=== PATIENT | female | born 1985 | race Caucasian/White ===

== ENCOUNTER 2016-08-04 01:17 | Emergency (ER) | payer SELFPAY ==
[~2016-08-04] VITALS: Ht 172.7 cm; Wt 56.7 kg
[2016-08-04] MEDS ORDERED: TRAZ-144 PO (01:51)
[2016-08-04] MEDS ORDERED: CITA40TA22 PO (01:52)
[2016-08-04] MEDS ORDERED: birth control PO (01:53)
[2016-08-04] MEDS ORDERED: POTA-10 PO (01:56)
[2016-08-04] MEDS ORDERED: IV NORMAL SALINE 1000 ML BAG IV ONE ×2 (02:15)
[2016-08-04] MEDS ORDERED: PANTOPRAZOLE SODIUM 40 MG VIAL IV ONE (02:15)
[2016-08-04] MEDS ORDERED: ONDANSETRON 4 MG/2 ML VIAL IV ONE ×2 (02:15→05:00)
[2016-08-04] MEDS ORDERED: MORPHINE SULFATE 2 MG/1 ML DISP.SYRIN IV ONE (02:15)
[2016-08-04 02:25] LABS: BASOPHILS % (AUTO) 0.3 % (0.0-2.0); EOSINOPHILS # (AUTO) 0.1 K/uL (0.0-0.7); EOSINOPHILS % (AUTO) 0.8 % (0.0-7.0); HEMATOCRIT 35.2 % (31.2-41.9); HEMOGLOBIN 12.4 g/dL (10.9-14.3); LYMPHOCYTES # (AUTO) 3.1 K/uL (20.0-40.0); LYMPHOCYTES % (AUTO) 30.8 % (20.5-51.5); MEAN CORPUSCULAR HEMOGLOBIN 31.9 uug (24.7-32.8); MEAN CORPUSCULAR HGB CONC 35 g/dL (32.3-35.6); MEAN CORPUSCULAR VOLUME 90.4 fL (75.5-95.3); MONOCYTES # (AUTO) 0.7 K/uL (2.0-10.0); MONOCYTES % (AUTO) 7.3 % (0.0-11.0); NEUTROPHILS # (AUTO) 6.1 K/uL (1.8-8.9); NEUTROPHILS % (AUTO) 60.8 % (38.5-71.5); PLATELET COUNT (AUTO) 286 K/uL (179-408); RED BLOOD CELL COUNT(AUTO) 3.89 MIL/uL (3.63-4.92)
[2016-08-04 02:41] LABS: ALBUMIN 3.7 g/dL (3.4-5.0); BILIRUBIN,DIRECT 0.1 mg/dL (0.0-0.2); BILIRUBIN,TOTAL 0.3 mg/dL (0.2-1.0); CALCIUM 8.7 mg/dL (8.5-10.1); CREATININE 0.8 mg/dL (0.6-1.3); POTASSIUM 3.5 mmol/L (3.5-5.1); TOTAL PROTEIN, SERUM 7.2 g/dL (6.4-8.2)
[2016-08-04] MEDS ORDERED: PANTOPRAZOLE SODIUM 40 MG VIAL ONE (02:41)
[2016-08-04] MEDS ORDERED: MORPHINE SULFATE 2 MG/1 ML DISP.SYRIN ONE (02:41)
[2016-08-04] MEDS ORDERED: ONDANSETRON 4 MG/2 ML VIAL ONE ×2 (02:41→05:06)
[2016-08-04] MEDS ORDERED: HYDROMORPHONE 1 MG/1 ML DISP.SYRIN IV ONE ×2 (03:30→04:45)
[2016-08-04] MEDS ORDERED: HYDROMORPHONE 1 MG/1 ML DISP.SYRIN ONE ×2 (03:33→05:04)
[2016-08-04] MEDS ORDERED: ALBUTEROL SULFATE 2.5 MG/3 ML NEBU NEB ONE (04:45)
[2016-08-04] MEDS ORDERED: ALBUTEROL SULFATE 2.5 MG/3 ML NEBU ONE (04:46)
--- NOTE | 2016-08-04 05:59 | NUR ---
Patient discharged to home in stable conditon. Written and verbal after care instructions given. Patient verbalizes understanding of instructions.
== END 2016-08-04 06:00 | disposition home or self-care (01) ==
LOC: ER 01:20
DX: R55 Syncope and collapse (principal); J40 Bronchitis, not specified as acute or chronic; R11.10 Vomiting, unspecified; F41.9 Anxiety disorder, unspecified; Z88.6 Allergy status to analgesic agent
CPT/HCPCS: 36415; 70030-TC; 71010; 73502; 84703; 85025; 93005; A4663; C9113; J1170; J2270; J2405; J7030

== ENCOUNTER 2016-08-27 23:11 | Emergency (ER) | payer OTHER ==
[~2016-08-27] VITALS: Ht 172.7 cm; Wt 55.3 kg
[~2016-08-27 23:11] MED LIST: CITA40TA22 PO; POTA-10 PO; TRAZ-144 PO; birth control PO
--- NOTE | 2016-08-27 23:15 | NUR ---
PATIENT C/O N/V X4 DAYS WITH DIARRHEA X1 DAY. ALSO C/O PELVIC PAIN X1 WEEK. 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 C/O BACK PAIN FOM SYNCOPE... PT IS ALERT, ORIENTED X 4, NO RESP DISTRESS NOTED OR REPORTED UPON ASSESSMENT...
[2016-08-27] MEDS ORDERED: IV NORMAL SALINE 1000 ML BAG IV ONE (23:30)
[2016-08-27 23:54] LABS: BASOPHILS % (AUTO) 0.5 % (0.0-2.0); EOSINOPHILS # (AUTO) 0.1 K/uL (0.0-0.7); EOSINOPHILS % (AUTO) 0.7 % (0.0-7.0); HEMATOCRIT 38.9 % (37-47); HEMOGLOBIN 13.1 G/DL (12.0-16.0); LYMPHOCYTES # (AUTO) 3.3 K/UL (0.8-4.8); LYMPHOCYTES % (AUTO) 34.4 % (20.5-51.5); MEAN CORPUSCULAR HEMOGLOBIN 30.3 UUG (27.0-31.0); MEAN CORPUSCULAR HGB CONC 34 g/dL (32.0-37.0); MEAN CORPUSCULAR VOLUME 90.1 FL (81.0-99.0); MONOCYTES # (AUTO) 0.6 K/UL (0.1-1.30); MONOCYTES % (AUTO) 6.2 % (0.0-11.0); NEUTROPHILS # (AUTO) 5.7 K/UL (1.8-8.9); NEUTROPHILS % (AUTO) 58.2 % (38.5-71.5); PLATELET COUNT (AUTO) 261 K/UL (150-450); RED BLOOD CELL COUNT(AUTO) 4.32 MIL/UL (4.2-5.4); RED CELL DISTRIBUTION WIDTH 11.6 % (11.5-14.5); WHITE BLOOD COUNT (AUTO) 9.7 K/UL (4.0-11.2)
[2016-08-28 00:10] LABS: BILIRUBIN,DIRECT 0.1 mg/dL (0.0-0.2); BILIRUBIN,TOTAL 0.3 mg/dL (0.2-1.0); CALCIUM 9.1 mg/dL (8.5-10.1); CREATININE 0.9 mg/dL (0.6-1.3); POTASSIUM 3.6 mmol/L (3.5-5.1); TOTAL PROTEIN, SERUM 7.5 g/dL (6.4-8.2)
[2016-08-28] MEDS ORDERED: PROCHLORPERAZINE EDISYLATE 10 MG/2 ML VIAL IV ONE (00:30)
[2016-08-28] MEDS ORDERED: HYDROMORPHONE 1 MG/1 ML DISP.SYRIN IV ONE (00:30)
[2016-08-28] MEDS ORDERED: HYDROMORPHONE 1 MG/1 ML DISP.SYRIN ONE (00:49)
[2016-08-28] MEDS ORDERED: PROCHLORPERAZINE EDISYLATE 10 MG/2 ML VIAL ONE (00:49)
[2016-08-28] MEDS ORDERED: LORAZEPAM 2 MG/1 ML VIAL IV ONE (02:30)
[2016-08-28] MEDS ORDERED: LORAZEPAM 2 MG/1 ML VIAL ONE (02:35)
[2016-08-28] MEDS ORDERED: ONDANSETRON IV *ER 4 MG/2 ML VIAL IV ONE (03:00)
[2016-08-28] MEDS ORDERED: ONDANSETRON 4 MG/2 ML VIAL ONE (03:16)
--- NOTE | 2016-08-28 03:28 | NUR ---
Patient discharged to home in stable conditon. Written and verbal after care instructions given. Patient verbalizes understanding of instructions. Pt walked out of ER unassisted with belongings at side, pt taking an Uber home...
[2016-08-28 03:30] VITALS: BP 116/81
[2016-08-30 23:08] LABS: *CHLAMYDIA NAA Negative (Negative); *GC NAA Negative (Negative); *TRIC.VAG. NAA Negative (Negative)
== END 2016-08-28 03:35 | disposition home or self-care (01) ==
LOC: ER 23:12
DX: R55 Syncope and collapse (principal); R11.2 Nausea with vomiting, unspecified; R10.2 Pelvic and perineal pain; F41.9 Anxiety disorder, unspecified; F10.20 Alcohol dependence, uncomplicated; Z88.6 Allergy status to analgesic agent
CPT/HCPCS: 36415; 70030-TC; 84703; 85025; 87491; 93005; A4663; J0780; J1170; J2060; J2405; J7030

== ENCOUNTER 2016-10-06 00:30 | Emergency (ER) | payer OTHER ==
[~2016-10-06] VITALS: Ht 172.7 cm; Wt 56.7 kg
[2016-10-06] MEDS ORDERED: HYDROMORPHONE 1 MG/1 ML DISP.SYRIN IV ONE ×2 (01:30→02:45)
[2016-10-06] MEDS ORDERED: ONDANSETRON 4 MG/2 ML VIAL IV ONE ×2 (01:30→02:45)
[2016-10-06] MEDS ORDERED: IV NORMAL SALINE 1000 ML BAG IV ONE (01:30)
[2016-10-06 01:39] LABS: *BILIRUBIN,URIN NEGATIVE (NEGATIVE); *BLOOD, URINE NEGATIVE (NEGATIVE); *CLARITY,URINE CLEAR (CLEAR); *COLOR,URINE LIGHT YELLOW (YELLOW); *KETONES,URINE NEGATIVE (NEGATIVE); *PROTEIN,URINE NEGATIVE (NEGATIVE); *UROBILINOGEN,URINE 0.2 E.U./dl (NORMAL); LEUKOCYTE ESTERASE ,URINE NEGATIVE (NEGATIVE); NITRITE, URINE NEGATIVE (NEGATIVE); UGLUCOSE NEGATIVE (NEGATIVE)
[2016-10-06] MEDS ORDERED: ONDANSETRON 4 MG/2 ML VIAL ONE ×2 (01:39→02:48)
[2016-10-06] MEDS ORDERED: HYDROMORPHONE 2 MG/1 ML DISP.SYRIN ONE (01:39)
[2016-10-06 01:44] LABS: *URINE HCG, QUAL NEGATIVE (NEGATIVE); BACTERIA,URINE FEW /HPF (NONE SEEN); RBC,URINE NONE SEEN /HPF (0-3); SQUAMOUS EPITHELIAL CELL,UR FEW /HPF (NONE SEEN); WBC,URINE 0-3 /HPF (0-3)
[2016-10-06 01:44] LABS: BASOPHILS # (AUTO) 0.1 K/uL (0.0-8.0); BASOPHILS % (AUTO) 0.6 % (0.0-2.0); EOSINOPHILS # (AUTO) 0.1 K/uL (0.0-0.7); EOSINOPHILS % (AUTO) 0.9 % (0.0-7.0); HEMATOCRIT 37.1 % (37-47); HEMOGLOBIN 12.6 G/DL (12.0-16.0); LYMPHOCYTES # (AUTO) 2.7 K/UL (0.8-4.8); LYMPHOCYTES % (AUTO) 31.5 % (20.5-51.5); MEAN CORPUSCULAR HEMOGLOBIN 30.9 UUG (27.0-31.0); MEAN CORPUSCULAR HGB CONC 34 g/dL (32.0-37.0); MONOCYTES # (AUTO) 0.7 K/UL (0.1-1.30); NEUTROPHILS # (AUTO) 4.9 K/UL (1.8-8.9); PLATELET COUNT (AUTO) 307 K/UL (150-450); RED BLOOD CELL COUNT(AUTO) 4.07 MIL/UL (4.2-5.4); WHITE BLOOD COUNT (AUTO) 8.5 K/UL (4.0-11.2)
[2016-10-06 01:51] LABS: CREATININE 0.7 mg/dL (0.6-1.3); POTASSIUM 3.7 mmol/L (3.5-5.1)
[2016-10-06 01:56] LABS: BILIRUBIN,DIRECT 0.1 mg/dL (0.0-0.2); BILIRUBIN,TOTAL 0.2 mg/dL (0.2-1.0); TOTAL PROTEIN, SERUM 7.5 g/dL (6.4-8.2)
--- NOTE | 2016-10-06 02:32 | NUR ---
Pt sts pain is coming back, requesting medication. Pt also c/o itching and requesting medication for itching and requesting more zofran. notified. Awaiting further orders.
[2016-10-06] MEDS ORDERED: diphenhydrAMINE 50 MG/1 ML VIAL IV ONE (02:45)
[2016-10-06] MEDS ORDERED: HYDROMORPHONE 1 MG/1 ML DISP.SYRIN ONE (02:48)
[2016-10-06] MEDS ORDERED: diphenhydrAMINE 50 MG/1 ML VIAL ONE (02:48)
--- NOTE | 2016-10-06 02:52 | NUR ---
Pt medicated for pain, nausea and itching. Will monitor for effects of medication. Fluid bolus cont infusing freely to gravity. Pt repositioned for comfort.
--- NOTE | 2016-10-06 03:50 | NUR ---
Pain improved. Fluid bolus completed. Pt stable for discharge per MD. IV dc'd, catheter intact. Drg applied. No problems noted to site. Pt and family given ACI. Both verbalized understanding of dc instructions. Pt wheeled out of er via w/c with ride home.
[2016-10-06 03:52] VITALS: BP 120/64
== END 2016-10-06 03:53 | disposition home or self-care (01) ==
LOC: ER 00:34
DX: R10.2 Pelvic and perineal pain (principal); F41.9 Anxiety disorder, unspecified; D25.9 Leiomyoma of uterus, unspecified; F10.20 Alcohol dependence, uncomplicated; Z88.6 Allergy status to analgesic agent
CPT/HCPCS: 36415; 80048; 80076; 81001; 83690; 84703; 85025; 96361; 96374; 96375; 96376; 99285; A4663; J1170 ×2; J1200; J2405 ×2; J7030 ×2

== ENCOUNTER 2016-10-14 00:34 | Emergency (ER) | payer OTHER ==
[~2016-10-14] VITALS: Ht 172.7 cm; Wt 56.2 kg
--- NOTE | 2016-10-14 01:05 | NUR ---
DANIELLE AVILES AT BEDSIDE FOR MSE
[2016-10-14] MEDS ORDERED: HYDROMORPHONE 1 MG/1 ML DISP.SYRIN IV ONE ×2 (01:15→02:45)
[2016-10-14] MEDS ORDERED: DIAZEPAM 2 MG TABLET PO ONE (01:15)
[2016-10-14] MEDS ORDERED: PROMETHAZINE HCL 25 MG/1 ML VIAL IM ONE (01:15)
[2016-10-14] MEDS ORDERED: IV NORMAL SALINE 1000 ML BAG IV ONE (01:15)
[2016-10-14] MEDS ORDERED: HYDROMORPHONE 1 MG/1 ML DISP.SYRIN ONE ×2 (01:42→02:52)
[2016-10-14] MEDS ORDERED: PROMETHAZINE HCL 25 MG/1 ML VIAL ONE (01:43)
[2016-10-14] MEDS ORDERED: DIAZEPAM 5 MG TABLET ONE (01:43)
[2016-10-14 01:52] LABS: CREATININE 0.6 mg/dL (0.6-1.3)
[2016-10-14 01:54] LABS: POTASSIUM 5.3 mmol/L (3.5-5.1)
[2016-10-14] MEDS ORDERED: ONDANSETRON IV *ER 4 MG/2 ML VIAL IV ONE (02:45)
--- NOTE | 2016-10-14 02:48 | NUR ---
Patient discharged to home in stable conditon. Written and verbal after care instructions given. Patient verbalizes understanding of instructions.
[2016-10-14] MEDS ORDERED: ONDANSETRON 4 MG/2 ML VIAL ONE (02:52)
== END 2016-10-14 02:50 | disposition home or self-care (01) ==
LOC: ER 00:38
DX: S16.1XXA Strain of muscle, fascia and tendon at neck level, initial encounter (principal); S86.912A Strain of unspecified muscle(s) and tendon(s) at lower leg level, left leg, initial encounter; F41.9 Anxiety disorder, unspecified; F10.20 Alcohol dependence, uncomplicated; Z88.7 Allergy status to serum and vaccine; W19.XXXA Unspecified fall, initial encounter; Y93.89 Activity, other specified; Y92.89 Other specified places as the place of occurrence of the external cause; Y99.8 Other external cause status
CPT/HCPCS: 36415; 84703; J1170; J2405; J2550; J7030

== ENCOUNTER 2016-11-04 21:34 | Emergency (ER) | payer OTHER ==
[~2016-11-04] VITALS: Ht 172.7 cm; Wt 57.2 kg
[2016-11-04] MEDS ORDERED: HYDROMORPHONE HCL 2 MG TABLET PO ONE (22:30)
[2016-11-04] MEDS ORDERED: ONDANSETRON 4 MG/2 ML VIAL IV ONE (22:30)
[2016-11-04] MEDS ORDERED: IV NORMAL SALINE 1000 ML BAG IV ONE (22:30)
[2016-11-04 22:39] LABS: *URINE HCG, QUAL NEGATIVE (NEGATIVE)
[2016-11-04] MEDS ORDERED: LORAZEPAM 2 MG/1 ML VIAL IV ONE (22:45)
[2016-11-04 22:46] LABS: BASOPHILS % (AUTO) 0.6 % (0.0-2.0); EOSINOPHILS % (AUTO) 0.8 % (0.0-7.0); HEMATOCRIT 37.3 % (37-47); HEMOGLOBIN 13.1 G/DL (12.0-16.0); LYMPHOCYTES # (AUTO) 0.7 K/UL (0.8-4.8); LYMPHOCYTES % (AUTO) 11.8 % (20.5-51.5); MEAN CORPUSCULAR HEMOGLOBIN 31.7 UUG (27.0-31.0); MEAN CORPUSCULAR HGB CONC 35 g/dL (32.0-37.0); MEAN CORPUSCULAR VOLUME 90.1 FL (81.0-99.0); MONOCYTES # (AUTO) 0.7 K/UL (0.1-1.30); MONOCYTES % (AUTO) 12.8 % (0.0-11.0); NEUTROPHILS # (AUTO) 4.4 K/UL (1.8-8.9); PLATELET COUNT (AUTO) 255 K/UL (150-450); RED BLOOD CELL COUNT(AUTO) 4.14 MIL/UL (4.2-5.4); WHITE BLOOD COUNT (AUTO) 5.8 K/UL (4.0-11.2)
[2016-11-04] MEDS ORDERED: ONDANSETRON 4 MG/2 ML VIAL ONE (22:53)
[2016-11-04 23:00] LABS: BILIRUBIN,DIRECT 0.1 mg/dL (0.0-0.2); BILIRUBIN,TOTAL 0.3 mg/dL (0.2-1.0); CREATININE 0.9 mg/dL (0.6-1.3); POTASSIUM 3.6 mmol/L (3.5-5.1); TOTAL PROTEIN, SERUM 7.4 g/dL (6.4-8.2)
[2016-11-04] MEDS ORDERED: HYDROMORPHONE HCL 2 MG TABLET ONE (23:00)
[2016-11-04] MEDS ORDERED: LORAZEPAM 2 MG/1 ML VIAL ONE (23:01)
--- NOTE | 2016-11-04 23:29 | NUR ---
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
[2016-11-05] MEDS ORDERED: HYDROMORPHONE HCL 2 MG TABLET PO ONE (00:15)
[2016-11-05] MEDS ORDERED: ONDANSETRON IV *ER 4 MG/2 ML VIAL IV ONE (00:30)
[2016-11-05] MEDS ORDERED: ONDANSETRON 4 MG/2 ML VIAL ONE (00:37)
[2016-11-05] MEDS ORDERED: HYDROMORPHONE HCL 2 MG TABLET ONE (00:37)
--- NOTE | 2016-11-05 00:42 | NUR ---
CALLED [facility] BACK, SPOKE TO DAVID, STATES DR. ALCARAZ WILL CALL US BACK.
--- NOTE | 2016-11-05 01:10 | NUR ---
WHILE TAKING CARE OF ANOTHER PATIENT, HEARD THIS PATIENT ARGUING WITH DR. OCONNOR. PATIENT WALKED TO THE BATHROOM AND HEARD CRYING. I SPOKE TO PATIENT AFTER SHE RETURNED TO HER ROOM AND STATES THAT SHE OVERHEARD DR. OCONNOR SPEAK WITH SOMEONE ON THE PHONE AND IT SOUNDED LIKE THAT DR. OCONNOR MADE IS SOUND LIKE THAT PATIENT HAS MED SEEKING BEHAVIOR. REASSURED PATIENT.
--- NOTE | 2016-11-05 01:26 | NUR ---
[facility] CALLED, SPOKE WITH DAVID STATED THAT WE WILL RECEIVE CALL WITH ROOM INFORMATION.
--- NOTE | 2016-11-05 01:35 | NUR ---
RECEIVED CALL FROM [facility], BLS TRANSPORT WILL BE HERE 219, TRANSFER TO [facility]
[2016-11-05] MEDS ORDERED: METOCLOPRAMIDE HCL 10 MG/2 ML VIAL IV ONE (01:45)
[2016-11-05] MEDS ORDERED: METOCLOPRAMIDE HCL 10 MG/2 ML VIAL ONE (01:55)
--- NOTE | 2016-11-05 01:55 | NUR ---
PATIENT LEFT AMA. NOTIFIED.
--- NOTE | 2016-11-05 01:56 | NUR ---
PATIENT WALKED OUT WITH IV STILL IN PLACE, SEARCHED THE TRASH IN HER ROOM, UNABLE TO LOCATE IT. WALKED OUTSIDE AND SEARCHED THE PARKING LOT, UNABLE TO FIND PATIENT. WILL CALL POLICE DEPARTMENT.
--- NOTE | 2016-11-05 02:09 | NUR ---
NURSING CAR PARKER AND SECURITY NOTIFIED THAT PATIENT, LEFT AMA. POLICE DEPARTMENT CALLED, SPOKE TO [employer] AND DESCRIPTION OF PATIENT GIVEN.
--- NOTE | 2016-11-05 02:17 | NUR ---
CALLED PATIENT ON [employer] PHONE NUMBER PROVIDED, MESSAGE LEFT.
--- NOTE | 2016-11-05 02:20 | NUR ---
OFFICER CHAVA HERE FROM [employer], ADDRESS AND DESCRIPTION OF PATIENT PROVIDED.
--- NOTE | 2016-11-05 02:52 | NUR ---
RECEIVED A CALL FROM OFFICER DOELL FROM [facility], ADDRESS THAT PATIENT PROVIDED ON FACE SHEET IS NOT A GOOD ADDRESS ANYMORE, PROVIDED OFFICER CHAVA WITH PATIENT'S PHONE NUMBER LISTED ON FACE SHEET.
== END 2016-11-05 02:00 | disposition left against medical advice (07) ==
LOC: ER 21:38
DX: G89.29 Other chronic pain (principal); R10.2 Pelvic and perineal pain; F41.9 Anxiety disorder, unspecified; R11.2 Nausea with vomiting, unspecified; Z88.6 Allergy status to analgesic agent
CPT/HCPCS: 36415; 80048; 80076; 84703; 85025; 85730; 93005; 96361; 96374; 96375; 96376; 99285; A4663; J2060; J2405 ×2; J2765; J7030

== ENCOUNTER 2017-01-13 03:07 | Emergency (ER) | payer OTHER ==
[~2017-01-13] VITALS: Ht 172.7 cm; Wt 56.7 kg
[2017-01-13 03:43] LABS: *BILIRUBIN,URIN NEGATIVE (NEGATIVE); *BLOOD, URINE NEGATIVE (NEGATIVE); *CLARITY,URINE CLEAR (CLEAR); *COLOR,URINE YELLOW (YELLOW); *KETONES,URINE NEGATIVE (NEGATIVE); *PROTEIN,URINE 1+ (NEGATIVE); *UROBILINOGEN,URINE 0.2 E.U./dl (NORMAL); LEUKOCYTE ESTERASE ,URINE TRACE (NEGATIVE); NITRITE, URINE NEGATIVE (NEGATIVE); PH,URINE 8.5 (5.0-8.0); UGLUCOSE NEGATIVE (NEGATIVE)
[2017-01-13 03:45] LABS: *URINE HCG, QUAL NEGATIVE (NEGATIVE)
--- NOTE | 2017-01-13 03:45 | NUR ---
Pt is received alert, responsive as she came in c/o Right Flank pain with Dysuria x2days and she is s/p [facility] visited on 01/06/17 and received Metronidazole 500mg po, Doxycycline 100mg BID but noneffective. Her care continue with MD at bedside.
[2017-01-13 03:48] LABS: BACTERIA,URINE MODERATE /HPF (NONE SEEN); RBC,URINE 0-3 /HPF (0-3); SQUAMOUS EPITHELIAL CELL,UR FEW /HPF (NONE SEEN)
[2017-01-13 04:09] LABS: BASOPHILS # (AUTO) 0.1 K/uL (0.0-8.0); BASOPHILS % (AUTO) 0.7 % (0.0-2.0); EOSINOPHILS # (AUTO) 0.1 K/uL (0.0-0.7); EOSINOPHILS % (AUTO) 0.8 % (0.0-7.0); HEMATOCRIT 36.2 % (37-47); HEMOGLOBIN 12.1 G/DL (12.0-16.0); LYMPHOCYTES # (AUTO) 2.5 K/UL (0.8-4.8); LYMPHOCYTES % (AUTO) 24.5 % (20.5-51.5); MEAN CORPUSCULAR HEMOGLOBIN 30.1 UUG (27.0-31.0); MEAN CORPUSCULAR HGB CONC 33 g/dL (32.0-37.0); MEAN CORPUSCULAR VOLUME 90.4 FL (81.0-99.0); MONOCYTES # (AUTO) 0.6 K/UL (0.1-1.30); PLATELET COUNT (AUTO) 293 K/UL (150-450); RED BLOOD CELL COUNT(AUTO) 4.01 MIL/UL (4.2-5.4); WHITE BLOOD COUNT (AUTO) 10.3 K/UL (4.0-11.2)
[2017-01-13 04:16] LABS: CREATININE 0.7 mg/dL (0.6-1.3); POTASSIUM 3.6 mmol/L (3.5-5.1)
--- NOTE | 2017-01-13 04:19 | NUR ---
Pt is noted resting in bed as she received Zofran 4mg IVP, Dilaudid 2mg IVP and started on 0.9ns IVF with labs work and urine collected and sent to lab. Her care continue as she is been monitor closely as awaits test results.
[2017-01-13 04:22] LABS: BILIRUBIN,DIRECT 0.1 mg/dL (0.0-0.2); BILIRUBIN,TOTAL 0.4 mg/dL (0.2-1.0); TOTAL PROTEIN, SERUM 6.7 g/dL (6.4-8.2)
--- NOTE | 2017-01-13 04:54 | NUR ---
IV removed. Catheter intact and site benign. Pressure and 4x4 gauze applied to site. No bleeding noted.
[2017-01-13 04:55] VITALS: BP 112/85
--- NOTE | 2017-01-13 04:55 | NUR ---
Patient discharged to home in stable conditon with uber taking atient home. Written and verbal after care instructions given. Patient verbalizes understanding of instructions. walke dout of ER with steady gait no distress noted
== END 2017-01-13 04:56 | disposition home or self-care (01) ==
LOC: ER 03:11
DX: N12 Tubulo-interstitial nephritis, not specified as acute or chronic (principal); R11.2 Nausea with vomiting, unspecified
CPT/HCPCS: 36415; 83690; 84703; 85025; 87086; A4663; J1170; J2405; J7030

== ENCOUNTER 2017-02-05 00:40 | Emergency (ER) | payer OTHER ==
[~2017-02-05] VITALS: Ht 172.7 cm; Wt 56.7 kg
--- NOTE | 2017-02-05 01:10 | NUR ---
Pt is received alert, responsive as she came in c/o Freguent Urination with bilateral flank pain with right flank greater than left side. She also c/o fever, chills , Vaginal burning and itching . Her care continue with urine sent to LAB as ordered while she will be medicated as ordered.
[2017-02-05] MEDS ORDERED: HYDROCODONE/APAP 5-325MG TABLET PO ONE (01:45)
[2017-02-05 01:57] LABS: *BILIRUBIN,URIN NEGATIVE (NEGATIVE); *BLOOD, URINE Trace-intact (NEGATIVE); *CLARITY,URINE CLEAR (CLEAR); *COLOR,URINE STRAW (YELLOW); *KETONES,URINE NEGATIVE (NEGATIVE); *PROTEIN,URINE NEGATIVE (NEGATIVE); *UROBILINOGEN,URINE 0.2 E.U./dl (NORMAL); LEUKOCYTE ESTERASE ,URINE NEGATIVE (NEGATIVE); NITRITE, URINE NEGATIVE (NEGATIVE); UGLUCOSE NEGATIVE (NEGATIVE)
[2017-02-05] MEDS ORDERED: HYDROCODONE/APAP 5-325MG TABLET ONE (02:08)
--- NOTE | 2017-02-05 02:13 | NUR ---
Pt remain alert, responsive a s she is been medicated as ordered with [place] 5mg /325mg po for pain . Her care continue as awaits lab result.
[2017-02-05 02:23] LABS: *URINE HCG, QUAL NEGATIVE (NEGATIVE); BACTERIA,URINE NONE SEEN /HPF (NONE SEEN); RBC,URINE 0-3 /HPF (0-3); SQUAMOUS EPITHELIAL CELL,UR FEW /HPF (NONE SEEN); WBC,URINE 0-3 /HPF (0-3)
[2017-02-05] MEDS ORDERED: PHENAZOPYRIDINE HCL 100 MG TABLET PO ONE (02:45)
[2017-02-05] MEDS ORDERED: HYDROMORPHONE 1 MG/1 ML DISP.SYRIN IM ONE (02:45)
[2017-02-05] MEDS ORDERED: ONDANSETRON 4 MG/2 ML VIAL IM ONE (02:45)
--- NOTE | 2017-02-05 03:01 | NUR ---
Pt is noted alertn responsive as she is been medicated as ordered with Dilaudid 1mg IM, Zofran 4mg IM for now. Her care continue as she is been monitor.
[2017-02-05] MEDS ORDERED: ONDANSETRON 4 MG/2 ML VIAL ONE (03:05)
[2017-02-05] MEDS ORDERED: HYDROMORPHONE 1 MG/1 ML DISP.SYRIN ONE (03:06)
[2017-02-05] MEDS ORDERED: PHENAZOPYRIDINE HCL 100 MG TABLET ONE (03:29)
--- NOTE | 2017-02-05 04:03 | NUR ---
Pt sts pain improved with medication. Pt stable for discharge per Dr. Ferro. Pt given ACI. Pt verbalized understanding of dc instructions. Pt ambulated out of ER with steady gait to wait for ride home.
[2017-02-05 04:07] VITALS: BP 128/72
== END 2017-02-05 04:00 | disposition home or self-care (01) ==
LOC: ER 00:42
DX: R30.0 Dysuria (principal); Z88.6 Allergy status to analgesic agent
CPT/HCPCS: 81001; 84703; 96372 ×2; 99284; A4663; J1170; J2405

== ENCOUNTER 2017-03-18 01:41 | Emergency (ER) | payer OTHER ==
[~2017-03-18] VITALS: Ht 172.7 cm; Wt 56.7 kg
[2017-03-18] MEDS ORDERED: IMIP25TA PO (01:49)
--- NOTE | 2017-03-18 02:04 | NUR ---
Pt ambulated to room with steady gait. Pt sts she has been vomiting for the last few days which has caused her jaw to hurt. Sts the pain is on both sides of her jaw radiating up her head to the top of her head. In addition pt c/o lower abd to peliv floor pain. Pt resting in position of comfort for self. Awaiting further eval.
[2017-03-18] MEDS ORDERED: IV NORMAL SALINE 1000 ML BAG IV ONE (02:30)
[2017-03-18] MEDS ORDERED: METOCLOPRAMIDE HCL 10 MG/2 ML VIAL IV ONE (02:30)
--- NOTE | 2017-03-18 02:50 | NUR ---
Pt seen by Dr. Ritchie. IV established, labs drawn and sent. Pt medicated for discomfort, will monitor for effects of medication. Fluid bolus infusing freely to gravity. Pt resting in position of comfort for self.
[2017-03-18 02:51] LABS: *BILIRUBIN,URIN NEGATIVE (NEGATIVE); *BLOOD, URINE NEGATIVE (NEGATIVE); *CLARITY,URINE CLEAR (CLEAR); *COLOR,URINE YELLOW (YELLOW); *KETONES,URINE NEGATIVE (NEGATIVE); *PROTEIN,URINE NEGATIVE (NEGATIVE); *UROBILINOGEN,URINE 0.2 E.U./dl (NORMAL); LEUKOCYTE ESTERASE ,URINE NEGATIVE (NEGATIVE); NITRITE, URINE NEGATIVE (NEGATIVE); PH,URINE 8.5 (5.0-8.0); UGLUCOSE NEGATIVE (NEGATIVE)
[2017-03-18 02:59] LABS: CREATININE 0.9 mg/dL (0.6-1.3); POTASSIUM 3.6 mmol/L (3.5-5.1)
[2017-03-18] MEDS ORDERED: METOCLOPRAMIDE HCL 10 MG/2 ML VIAL ONE (03:02)
[2017-03-18 03:05] LABS: BILIRUBIN,DIRECT 0.1 mg/dL (0.0-0.2); BILIRUBIN,TOTAL 0.5 mg/dL (0.2-1.0); TOTAL PROTEIN, SERUM 8.3 g/dL (6.4-8.2)
--- NOTE | 2017-03-18 03:37 | NUR ---
Pt sts she is feeling better. Pt stable for discharge per Dr. Ritchie. IV dc'd, catheter intact. Drsg applied. No problems noted to site. Pt given ACI. Pt verbalized understanding of dc instructions. Pt ambulated out of ER with steady gait to to wait for ride home.
[2017-03-18 03:39] VITALS: BP 128/88
[2017-03-18 03:45] LABS: BASOPHILS % (AUTO) 0.3 % (0.0-2.0); EOSINOPHILS # (AUTO) 0.1 K/uL (0.0-0.7); EOSINOPHILS % (AUTO) 0.5 % (0.0-7.0); HEMATOCRIT 44.7 % (37-47); HEMOGLOBIN 14.9 G/DL (12.0-16.0); LYMPHOCYTES # (AUTO) 2.6 K/UL (0.8-4.8); LYMPHOCYTES % (AUTO) 21.6 % (20.5-51.5); MEAN CORPUSCULAR HEMOGLOBIN 30.4 UUG (27.0-31.0); MEAN CORPUSCULAR HGB CONC 33 g/dL (32.0-37.0); MONOCYTES # (AUTO) 0.9 K/UL (0.1-1.30); MONOCYTES % (AUTO) 7.3 % (0.0-11.0); NEUTROPHILS # (AUTO) 8.2 K/UL (1.8-8.9); NEUTROPHILS % (AUTO) 70.3 % (38.5-71.5); PLATELET COUNT (AUTO) 418 K/UL (150-450); RED BLOOD CELL COUNT(AUTO) 4.91 MIL/UL (4.2-5.4); WHITE BLOOD COUNT (AUTO) 11.9 K/UL (4.0-11.2)
[2017-03-18 03:54] LABS: BACTERIA,URINE NONE SEEN /HPF (NONE SEEN); RBC,URINE NONE SEEN /HPF (0-3); SQUAMOUS EPITHELIAL CELL,UR FEW /HPF (NONE SEEN); URINE AMORPHOUS PHOSPHATES MODERATE /HPF; WBC,URINE 0-3 /HPF (0-3)
== END 2017-03-18 03:39 | disposition home or self-care (01) ==
LOC: ER 01:44
DX: G89.29 Other chronic pain (principal); N30.10 Interstitial cystitis (chronic) without hematuria; R11.2 Nausea with vomiting, unspecified; F41.9 Anxiety disorder, unspecified; Z88.6 Allergy status to analgesic agent
CPT/HCPCS: 36415; 83690; 84703; 85025; A4663; J2765; J7030